=== PATIENT | male | born 1950 | race Caucasian/White ===

== ENCOUNTER 2018-05-17 13:05 | Inpatient (IN) | payer MEDICARE ==
[~2018-05-17] VITALS: Ht 175.3 cm; Wt 77.7 kg
[2018-05-17 13:22] VITALS: Ht 175.3 cm; Wt 77.7 kg
[2018-05-17 15:21] LABS: BASOPHIL % 0.4 % (0-2); PLATELET COUNT 348 x10^3mcL (130-400); RED CELL DISTRIBUTION WIDTH 14.1 % (11.5-14.5)
[2018-05-17 15:39] LABS: CALCIUM 8.6 mg/dL (8.5-10.1); CHLORIDE SERUM 94 mmol/L (98-107); CREATININE SERUM 0.8 mg/dL (0.7-1.3); GFR1 > 60 mL/min; GLUCOSE SERUM 238 mg/dL (74-106); POTASSIUM SERUM 4.2 mmol/L (3.5-5.1); SODIUM SERUM 125 mmol/L (136-145)
[2018-05-17 15:50] LABS: ALBUMIN 3.6 g/dL (3.4-5.0); ALKALINE PHOSPHATASE 27 U/L (46-116); ALT/SGPT 17 U/L (16-63); AST/SGOT 13 U/L (15-37); BILIRUBIN TOTAL 0.44 mg/dL (0.20-1.00); TOTAL PROTEIN, SERUM 7.7 g/dL (6.4-8.2)
[2018-05-17] MEDS ORDERED: LOSARTAN POTASS25 M1 PO (16:36)
[2018-05-17] MEDS ORDERED: PRE50 PO (16:36)
[2018-05-17] MEDS ORDERED: GABAPENTIN800 M1 PO (16:37)
[2018-05-17] MEDS ORDERED: FORTAMET1000 MG PO (16:37)
[2018-05-17] MEDS ORDERED: FINASTERIDE5 M1 PO (16:37)
[2018-05-17] MEDS ORDERED: FENOFIBRATE54 M1 PO (16:37)
[2018-05-17] MEDS ORDERED: GOOD SENSE ASPI81 M3 PO (16:37)
[2018-05-17 17:29] VITALS: BP 140/72
[2018-05-17 21:25] VITALS: BP 139/73
[2018-05-18 05:42] VITALS: BP 138/69
[2018-05-18 07:33] LABS: BASOPHIL % 0.6 % (0-2); PLATELET COUNT 288 x10^3mcL (130-400); RED CELL DISTRIBUTION WIDTH 14.3 % (11.5-14.5)
[2018-05-18 07:40] LABS: CALCIUM 8.4 mg/dL (8.5-10.1); CARBON DIOXIDE 23.2 mmol/L (21-32); CHLORIDE SERUM 102 mmol/L (98-107); CREATININE SERUM 0.7 mg/dL (0.7-1.3); GFR1 > 60 mL/min; GLUCOSE SERUM 147 mg/dL (74-106); POTASSIUM SERUM 4.1 mmol/L (3.5-5.1); SODIUM SERUM 134 mmol/L (136-145)
[2018-05-18 10:11] VITALS: BP 145/71
[2018-05-18 10:18] VITALS: BP 145/71
== END 2018-05-18 11:20 | disposition home or self-care (01) | DRG 641 ==
LOC: ED 13:05 → DU 16:30
PROVIDERS: Emergency Medicine; Internal Medicine Pulmonary Disease
DX: E87.1 Hypo-osmolality and hyponatremia (principal); E86.0 Dehydration; E11.40 Type 2 diabetes mellitus with diabetic neuropathy, unspecified; I10 Essential (primary) hypertension; F32.9 Major depressive disorder, single episode, unspecified; E78.5 Hyperlipidemia, unspecified; N40.0 Benign prostatic hyperplasia without lower urinary tract symptoms; Z79.82 Long term (current) use of aspirin; Z79.84 Long term (current) use of oral hypoglycemic drugs
CPT/HCPCS: J8597

== ENCOUNTER 2018-12-05 18:52 | Emergency (ER) | payer MEDICARE ==
[~2018-12-05] VITALS: Ht 177.8 cm; Wt 80.9 kg
[~2018-12-05 18:52] MED LIST: FENOFIBRATE54 M1 PO; FINASTERIDE5 M1 PO; FORTAMET1000 MG PO; GABAPENTIN800 M1 PO; GOOD SENSE ASPI81 M3 PO; LOSARTAN POTASS25 M1 PO; PRE50 PO
[2018-12-05 19:06] VITALS: Ht 177.8 cm; Wt 80.9 kg
[2018-12-05 19:48] LABS: BASOPHIL % 0.2 % (0-2); PLATELET COUNT 313 x10^3mcL (130-400); RED CELL DISTRIBUTION WIDTH 13.4 % (11.5-14.5)
[2018-12-05 19:54] LABS: CALCIUM 8.5 mg/dL (8.5-10.1); CARBON DIOXIDE 25.4 mmol/L (21-32); CHLORIDE SERUM 96 mmol/L (98-107); CREATININE SERUM 0.9 mg/dL (0.7-1.3); GFR1 > 60 mL/min; GLUCOSE SERUM 266 mg/dL (74-106); POTASSIUM SERUM 3.9 mmol/L (3.5-5.1); SODIUM SERUM 130 mmol/L (136-145)
[2018-12-05 19:59] LABS: ALBUMIN 3.8 g/dL (3.4-5.0); ALKALINE PHOSPHATASE 31 U/L (46-116); ALT/SGPT 17 U/L (16-63); AST/SGOT 13 U/L (15-37); BILIRUBIN TOTAL 0.2 mg/dL (0.20-1.00); TOTAL PROTEIN, SERUM 8.1 g/dL (6.4-8.2)
[2018-12-05 20:47] VITALS: BP 160/79
== END 2018-12-05 20:47 | disposition home or self-care (01) ==
LOC: ED 18:52
PROVIDERS: Emergency Medicine
DX: R42 Dizziness and giddiness (principal); E11.65 Type 2 diabetes mellitus with hyperglycemia; I10 Essential (primary) hypertension; E11.9 Type 2 diabetes mellitus without complications; E78.00 Pure hypercholesterolemia, unspecified
CPT/HCPCS: 36415; 82962; J8597